=== PATIENT | male | born 1990 | race Caucasian/White ===

== ENCOUNTER 2024-09-23 21:14 | Emergency (ER) | payer OTHER ==
[2024-09-23] MEDS: droPERidol 2.5 MG/ML SDV IM ONE (21:37)
[2024-09-23] MEDS: diphenhydrAMINE 50 MG/ML SDV IM ONE (21:37)
[2024-09-23] MEDS: diphenhydrAMINE 50 MG/ML SDV ONE (21:58)
[2024-09-23] MEDS: droPERidol 2.5 MG/ML SDV ONE ×2 (21:58)
[2024-09-23] MEDS ORDERED: Sodium Chloride 0.9% 10 ML Syringe FLUSH PRN (22:01)
[2024-09-23] MEDS: LORazepam 2 MG/ML SDV IM ONE (22:03)
[2024-09-23 22:09] LABS: BASOPHILS PERCENT AUTO 0.2 % (0.0-1.0); EOSINOPHILS ABSOLUTE AUTO 0.4 K/mm3 (0.0-0.4); EOSINOPHILS PERCENT AUTO 3.3 % (0.0-6.0); HEMATOCRIT 44.4 % (42.0-52.0); HEMOGLOBIN 14.9 gm/dl (14.0-18.0); IMMATURE GRAN ABSOLUTE AUTO 0.05 K/mm3 (0.00-0.05); IMMATURE GRAN PERCENT AUTO 0.4 % (0.0-0.4); LYMPHOCYTES ABSOLUTE AUTO 3.3 K/mm3 (1.0-4.8); LYMPHOCYTES PERCENT AUTO 26.3 % (24.0-44.0); MEAN CORPUSCULAR HEMOGLOBIN 29.4 pg (28.0-32.0); MEAN CORPUSCULAR HGB CONC 33.6 g/dl (32.0-36.0); MEAN CORPUSCULAR VOLUME 87.6 fl (83.0-99.0); MEAN PLATELET VOLUME 10.3 fl (9.4-12.4); MONOCYTES ABSOLUTE AUTO 0.8 K/mm3 (0.0-0.8); MONOCYTES PERCENT AUTO 6.4 % (0.0-8.0); NEUTROPHILS PERCENT AUTO 63.4 % (41.0-71.0); PLATELET COUNT,PLT 268 K/mm3 (150-400); RED BLOOD CELL COUNT 5.07 M/mm3 (4.52-5.90); WHITE BLOOD CELL COUNT,WBC 12.69 K/mm3 (3.9-11.3)
[2024-09-23 22:29] LABS: INR 0.99; PROTHROMBIN TIME 10.5 SECONDS (9.7-12.0)
[2024-09-23 22:30] LABS: PTT,PARTIAL THROMBOPLSTIN TIME 26.2 SECONDS (21.7-31.4)
[2024-09-23 22:41] LABS: ALBUMIN 3.6 g/dl (3.4-5.0); ANION GAP 16.1 (5-15); BILIRUBIN TOTAL 0.4 mg/dL (0.2-1.0); BUN/CREATININE RATIO 10.9 (14-18); CALCIUM 8.9 mg/dL (8.5-10.1); CREATININE 1.1 mg/dL (0.7-1.3); ETHANOL BLOOD MEDICAL 0.04 gm% (0.00); MAGNESIUM 2.1 mg/dL (1.8-2.4); POTASSIUM,K 3.1 mEq/L (3.5-5.1); PROTEIN TOTAL,TP 7.4 g/dl (6.4-8.2); TSH 1.623 uIU/mL (0.358-3.74)
[2024-09-23] MEDS: Sodium Chloride 0.9% 1,000 ML IV ONE (23:00)
[2024-09-23] MEDS: Iopamidol 612 MG/ML 100 ML Bottle IVPUSH ONE (23:15)
[2024-09-23] MEDS: Sodium Chloride 0.9% 10 ML Syringe FLUSH PRN (23:15)
[2024-09-23] MEDS: Iopamidol 612 MG/ML 30 ML SDV IV ONE (23:15)
[2024-09-24] MEDS: Diphtheria,Pertussis(Acell),Tetanus Vaccine 0.5 ML Syringe IM ONE (00:22)
== END 2024-09-24 00:45 ==
LOC: JD.ED 21:14
DX: S02.119A Unspecified fracture of occiput, initial encounter for closed fracture (principal); S06.6X1A Traumatic subarachnoid hemorrhage with loss of consciousness of 30 minutes or less, initial encounter; S06.5X1A Traumatic subdural hemorrhage with loss of consciousness of 30 minutes or less, initial encounter; S06.361A Traumatic hemorrhage of cerebrum, unspecified, with loss of consciousness of 30 minutes or less, initial encounter; Z79.899 Other long term (current) drug therapy; Z23 Encounter for immunization; V00.841A Fall from standing electric scooter, initial encounter
CPT/HCPCS: 36415; 70450; 71260; 72125; 74177; 80053; 80307; 83690; 83735; 84443; 84484; 85025; 85610; 85730; 86850; 86900; 86901; 90471; 90715; 93005; 96360; 96372; 99285; J1200; J1790; J2060; J7030; Q9967; 93010